=== PATIENT | female | born 1975 | race Asian ===

== ENCOUNTER 2016-12-02 13:38 | Outpatient (CLI) | payer OTHER ==
--- NOTE | 2016-12-02 15:33 | DIAGNOSTIC IMAGING REPORT ---
PROCEDURE: MG UNILATERAL DIAG-LT W/CAD INDICATION: Palpable area upper outer left breast. History of breast cysts. TECHNIQUE: CC, MLO and true-lateral digital views of left breast. In addition, spot compression CC and MLO views were obtained of the upper outer left breast (region of clinical concern). Finally, high-resolution left breast ultrasound was performed (18 mHz) with limited comparison images of the right breast.. COMPARISON: Comparison is made to right breast ultrasound (06/04/2016), bilateral mammogram and left breast ultrasound (02/13/2016). FINDINGS: MAMMOGRAM: Computer-aided detection applied. Dense parenchymal pattern. No evidence of mass or suspicious calcification. BREAST ULTRASOUND: There is a 1.4 cm septated cyst in the upper outer left breast which accounts for palpable area. There is a 1.5 cm cyst in the medial left breast which appears unchanged (previously documented). Limited comparison images of the right breast demonstrate cystic changes. IMPRESSION: 1. There is a 1.4 cm septated cyst in the upper outer left breast which accounts for the palpable area. 2. There is a 1.5 cm cyst in the medial left breast (stable). 3. Otherwise negative mammogram and left breast ultrasound. 4. Resume routine screening mammogram schedule (February 2017). 5. Findings discussed with the patient. RESULT CODE: 2- Benign finding(s). A. A negative report should not delay biopsy if a dominant or clinically suspicious mass is present. 10-15% of cancers are not identified by x-ray. B. A negative report may reinforce clinical impression. C. Adenosis and dense breasts may obscure an underlying neoplasm. D. False positive reports average 6-10%. E.. A yearly screening mammogram is recommended. A reminder letter will be scheduled.
== END 2016-12-02 23:00 | disposition home or self-care (01) ==
LOC: MAM SRH 13:38
DX: N60.02 Solitary cyst of left breast (principal)